=== PATIENT | male | born 1955 | race African-American/Black ===

== ENCOUNTER 2017-05-16 11:26 | Inpatient (IN) | payer MEDICAID ==
[~2017-05-16] VITALS: Ht 170.2 cm; Wt 69.4 kg
[2017-05-16] MEDS ORDERED: ACETAMINOPHEN 325MG TABLET PO STA (11:52)
[2017-05-16] MEDS ORDERED: SODIUM CHLORIDE 0.9% 1,000 ML IV ONE (11:52)
[2017-05-16 12:27] LABS: HEMATOCRIT. 36.9 % (42.0-52.0); HEMOGLOBIN. 12.4 g/dL (14.0-18.0); MEAN CORPUSCULAR HEMOGLOBIN 29.9 pg (28.0-32.0); MEAN CORPUSCULAR VOLUME 89.3 fL (80.0-94.0); MEAN PLATELET VOLUME 7.5 fl (7.4-10.4); PLATELET 255 x1000/uL (130-400); RED BLOOD CELL COUNT 4.13 mill/uL (4.7-6.1)
[2017-05-16 12:33] LABS: PROTHROMBIN TIME 10.7 sec (9.4-11.6)
[2017-05-16 12:39] LABS: CARBON DIOXIDE 27 mEq/L (21-32); CHLORIDE 99 mEq/L (98-107)
[2017-05-16 12:43] LABS: TROPONIN I < 0.02 ng/mL (0.00-0.04)
[2017-05-16] MEDS ORDERED: CEFTRIAXONE 2 G PREMIX 50 ML IV NR (12:45)
[2017-05-16] MEDS ORDERED: AZITHROMYCIN 500 MG in DEXT 5% WATER 250 ML IV NR (12:45)
[2017-05-16 13:50] LABS: PLATELET ESTIMATE NORMAL
[2017-05-16 13:55] LABS: CLARITY URINE CLEAR (CLEAR); COLOR URINE YELLOW (YELLOW); GLUCOSE URINE NEGATIVE (NEGATIVE); KETONES URINE NEGATIVE (NEGATIVE); OCCULT BLOOD URINE NEGATIVE (NEGATIVE); PROTEIN URINE NEGATIVE (NEGATIVE)
[2017-05-16 13:56] LABS: LEUKOCYTE ESTERASE URINE NEGATIVE (NEGATIVE); NITRITE URINE NEGATIVE (NEGATIVE); SPECIFIC GRAVITY URINE 1.012 (1.005-1.030)
[2017-05-16] MEDS ORDERED: IBUPROFEN 400MG TABLET PO ONE (16:45)
[2017-05-16] MEDS ORDERED: DOCUSATE SODIUM 100MG CAPSULE PO PRN (17:45)
[2017-05-16] MEDS ORDERED: ONDANSETRON HCL 4MG/2ML VIAL IV PRN (17:45)
[2017-05-16] MEDS ORDERED: MORPHINE SULFATE 4 MG/ML CPJ (NOT FOR IM USE) IV PRN (18:00)
[2017-05-16 18:48] LABS: *AMPHETAMINES SCREEN URINE NEGATIVE (NEGATIVE); *BARBITURATES SCREEN URINE NEGATIVE (NEGATIVE); *BENZODIAZEPINES SCREEN URINE NEGATIVE (NEGATIVE); *COCAINE SCREEN URINE NEGATIVE (NEGATIVE); CANNABINOID URINE SCREEN NEGATIVE (NEGATIVE); METHADONE URINE SCREEN NEGATIVE (NEGATIVE); OPIATES URINE SCREEN NEGATIVE (NEGATIVE); PHENCYCLIDINE URINE SCREEN NEGATIVE (NEGATIVE)
[2017-05-16] MEDS ORDERED: LISI40TA4 PO (19:05)
[2017-05-16] MEDS ORDERED: CARV12.545 PO (19:17)
[2017-05-16] MEDS ORDERED: DIGO250T4 PO (19:18)
[2017-05-16] MEDS ORDERED: MULT-1146 PO (19:19)
[2017-05-16] MEDS ORDERED: ASPI-1079 PO (19:19)
[2017-05-16] MEDS ORDERED: LORA0.5T2 PO (19:20)
[2017-05-16] MEDS ORDERED: INFLUENZA VIRUS VACCINE 0.5ML SYR IM ONE (19:45)
[2017-05-16] MEDS ORDERED: PNEUMOCOCCAL 23-VAL P-SAC VAC 0.5 ML IM ONE (19:45)
[2017-05-16 20:00] VITALS: BP 98/52
[2017-05-16] MEDS: ENOXAPARIN 40MG/0.4ML SYR SUBCUT SCH (20:58)
[2017-05-16 23:57] LABS: CREATINE KINASE 105 IU/L (39-308); CREATINE KINASE MB FRACTION < 0.5 ng/mL (0.5-3.6); TROPONIN I < 0.02 ng/mL (0.00-0.04)
[2017-05-17] VITALS: BP 97/59
[2017-05-17] MEDS: LORAZEPAM 2MG/ML CPJ IV PRN (00:48)
[2017-05-17 04:00] VITALS: BP 115/56
[2017-05-17] MEDS ORDERED: ASPIRIN 81MG TABLET PO SCH (07:00)
[2017-05-17 07:30] LABS: HEMATOCRIT. 34.1 % (42.0-52.0); HEMOGLOBIN. 11.2 g/dL (14.0-18.0); MEAN CORPUSCULAR HEMOGLOBIN 29.5 pg (28.0-32.0); MEAN CORPUSCULAR VOLUME 89.5 fL (80.0-94.0); MEAN PLATELET VOLUME 8.2 fl (7.4-10.4); PLATELET 232 x1000/uL (130-400); RED BLOOD CELL COUNT 3.81 mill/uL (4.7-6.1); RED CELL DISTRIBUTION WIDTH 13.8 % (11.6-14.6)
[2017-05-17 08:00] VITALS: BP 101/63
[2017-05-17] MEDS: THIAMINE HCL 100MG TABLET PO SCH (08:52)
[2017-05-17] MEDS: DIGOXIN 250MCG TABLET PO SCH (08:53)
[2017-05-17] MEDS: LORAZEPAM 0.5MG TABLET PO SCH ×3 (08:53→17:44)
[2017-05-17] MEDS: ASPIRIN 81MG EC TABLET PO SCH (08:53)
[2017-05-17] MEDS ORDERED: AZITHROMYCIN 500 MG in DEXT 5% WATER 250 ML IV SCH (09:00)
[2017-05-17] MEDS: LISINOPRIL 40MG TABLET PO SCH (09:00)
[2017-05-17] MEDS: CARVEDILOL 12.5MG TABLET PO SCH ×2 (09:00→21:00)
[2017-05-17] MEDS ORDERED: FUROSEMIDE 40MG/4ML VIAL IV SCH (09:00)
[2017-05-17 10:28] LABS: CARBON DIOXIDE 27 mEq/L (21-32); CHLORIDE 100 mEq/L (98-107); PHOSPHORUS 2.6 mg/dL (2.5-4.9)
[2017-05-17 11:05] LABS: CREATINE KINASE 103 IU/L (39-308); CREATINE KINASE MB FRACTION < 0.5 ng/mL (0.5-3.6); TROPONIN I < 0.02 ng/mL (0.00-0.04)
[2017-05-17 12:00] VITALS: BP 110/70
[2017-05-17] MEDS ORDERED: GUAIFENESIN 200MG/10ML SUGAR FREE UDC PO PRN (13:15)
[2017-05-17] MEDS ORDERED: CEFTRIAXONE 1 G PREMIX 50 ML IV SCH (14:00)
[2017-05-17] MEDS: POTASSIUM CHLORIDE 20MEQ TABLET SR PO SCH (14:13)
[2017-05-17] MEDS: CEFTRIAXONE 1 G PREMIX 50 ML IV SCH (14:13)
[2017-05-17] MEDS: ACETAMINOPHEN 325MG TABLET PO PRN (14:28)
[2017-05-17 16:00] VITALS: BP 110/55
[2017-05-17 20:00] VITALS: BP 109/67
[2017-05-17] MEDS: ENOXAPARIN 40MG/0.4ML SYR SUBCUT SCH (20:29)
[2017-05-18] VITALS (8 sets, daily range): BP systolic 93–111; BP diastolic 59–74
[2017-05-18] MEDS: IPRATROPIUM/ALBUTEROL 0.5-3(2.5)MG/3ML NEB INH PRN ×2 (00:41→04:38)
[2017-05-18] MEDS: HYDROCODONE/ACETAMINOPHEN 5/325MG TABLET PO PRN (00:43)
[2017-05-18] MEDS: FUROSEMIDE 40MG/4ML VIAL IV SCH (06:35)
[2017-05-18 07:27] LABS: BASOPHILS % 0.1 % (0.0-2.0); HEMATOCRIT. 33.2 % (42.0-52.0); LYMPHOCYTES % 10.4 % (20.0-50.0); MEAN CORPUSCULAR HEMOGLOBIN 29.6 pg (28.0-32.0); MEAN CORPUSCULAR VOLUME 89.6 fL (80.0-94.0); MEAN PLATELET VOLUME 7.9 fl (7.4-10.4); NEUTROPHILS % 79.5 % (40.0-76.0); PLATELET 241 x1000/uL (130-400); RED BLOOD CELL COUNT 3.71 mill/uL (4.7-6.1); RED CELL DISTRIBUTION WIDTH 14.1 % (11.6-14.6)
[2017-05-18] MEDS ORDERED: MORPHINE SULFATE 10 MG/ML CPJ IV PRN (07:57)
[2017-05-18 08:05] LABS: CARBON DIOXIDE 27 mEq/L (21-32); CHLORIDE 99 mEq/L (98-107); PHOSPHORUS 2.9 mg/dL (2.5-4.9)
[2017-05-18] MEDS: CEFTRIAXONE 1 G PREMIX 50 ML IV SCH (08:36)
[2017-05-18] MEDS: LISINOPRIL 40MG TABLET PO SCH (08:37)
[2017-05-18] MEDS: THIAMINE HCL 100MG TABLET PO SCH (08:37)
[2017-05-18] MEDS: POTASSIUM CHLORIDE 20MEQ TABLET SR PO SCH (08:37)
[2017-05-18] MEDS: CARVEDILOL 12.5MG TABLET PO SCH ×2 (08:37→09:00)
[2017-05-18] MEDS: AZITHROMYCIN 500 MG in DEXT 5% WATER 250 ML IV SCH (08:37)
[2017-05-18] MEDS: ASPIRIN 81MG EC TABLET PO SCH (08:38)
[2017-05-18] MEDS: DIGOXIN 250MCG TABLET PO SCH (08:38)
[2017-05-18] MEDS: LORAZEPAM 0.5MG TABLET PO SCH ×4 (08:38→18:45)
[2017-05-18 14:39] LABS: PLATELET ESTIMATE NORMAL
[2017-05-18] MEDS: ALBUTEROL (0.083%) 2.5MG/3ML NEB HHN SCH ×2 (17:57→20:06)
[2017-05-18] MEDS: CARVEDILOL 6.25 MG TABLET PO SCH (21:00)
[2017-05-18] MEDS: ENOXAPARIN 40MG/0.4ML SYR SUBCUT SCH (21:27)
[2017-05-19] VITALS: BP 105/59
[2017-05-19] MEDS: ALBUTEROL (0.083%) 2.5MG/3ML NEB HHN SCH ×6 (00:16→21:18)
[2017-05-19] MEDS: LORAZEPAM 2MG/ML CPJ IV PRN ×2 (01:14→20:52)
[2017-05-19 04:00] VITALS: BP 106/63
[2017-05-19] MEDS: FUROSEMIDE 40MG/4ML VIAL IV SCH (06:44)
[2017-05-19 07:41] VITALS: BP 112/64
[2017-05-19] MEDS: AZITHROMYCIN 500 MG in DEXT 5% WATER 250 ML IV SCH (08:15)
[2017-05-19] MEDS: CEFTRIAXONE 1 G PREMIX 50 ML IV SCH (08:16)
[2017-05-19] MEDS: ASPIRIN 81MG EC TABLET PO SCH (08:16)
[2017-05-19] MEDS: THIAMINE HCL 100MG TABLET PO SCH (08:16)
[2017-05-19] MEDS: LORAZEPAM 0.5MG TABLET PO SCH ×3 (08:16→16:51)
[2017-05-19] MEDS: DIGOXIN 250MCG TABLET PO SCH (08:17)
[2017-05-19] MEDS: POTASSIUM CHLORIDE 20MEQ TABLET SR PO SCH (08:17)
[2017-05-19] MEDS: LISINOPRIL 20MG TABLET PO SCH (08:18)
[2017-05-19] MEDS: CARVEDILOL 6.25 MG TABLET PO SCH ×2 (08:19→20:50)
[2017-05-19 08:45] LABS: BASOPHILS % 0.1 % (0.0-2.0); EOSINOPHILS % 3.9 % (0.0-5.0); HEMATOCRIT. 36.3 % (42.0-52.0); HEMOGLOBIN. 12.2 g/dL (14.0-18.0); LYMPHOCYTES % 15.8 % (20.0-50.0); MEAN CORPUSCULAR HEMOGLOBIN 30.3 pg (28.0-32.0); MEAN CORPUSCULAR VOLUME 90.1 fL (80.0-94.0); MEAN PLATELET VOLUME 7.9 fl (7.4-10.4); MONOCYTES % 11.4 % (2.0-8.0); NEUTROPHILS % 68.8 % (40.0-76.0); PLATELET 290 x1000/uL (130-400); RED BLOOD CELL COUNT 4.02 mill/uL (4.7-6.1); RED CELL DISTRIBUTION WIDTH 13.7 % (11.6-14.6)
[2017-05-19 11:50] VITALS: BP 108/74
[2017-05-19 16:00] VITALS: BP 112/78
[2017-05-19 20:00] VITALS: BP 120/65
[2017-05-19] MEDS: ENOXAPARIN 40MG/0.4ML SYR SUBCUT SCH (20:51)
[2017-05-20] VITALS (7 sets, daily range): BP systolic 99–132; BP diastolic 54–89
[2017-05-20] MEDS: ALBUTEROL (0.083%) 2.5MG/3ML NEB HHN SCH ×6 (00:30→20:59)
[2017-05-20] MEDS: FUROSEMIDE 40MG/4ML VIAL IV SCH (06:32)
[2017-05-20 07:27] LABS: HEMATOCRIT. 34.6 % (42.0-52.0); HEMOGLOBIN. 11.7 g/dL (14.0-18.0); MEAN CORPUSCULAR HEMOGLOBIN 30.2 pg (28.0-32.0); MEAN CORPUSCULAR VOLUME 89.3 fL (80.0-94.0); MEAN PLATELET VOLUME 7.6 fl (7.4-10.4); PLATELET 297 x1000/uL (130-400); RED BLOOD CELL COUNT 3.88 mill/uL (4.7-6.1); RED CELL DISTRIBUTION WIDTH 13.6 % (11.6-14.6)
[2017-05-20] MEDS: AZITHROMYCIN 500 MG in DEXT 5% WATER 250 ML IV SCH (08:23)
[2017-05-20] MEDS: CEFTRIAXONE 1 G PREMIX 50 ML IV SCH (08:23)
[2017-05-20] MEDS: LORAZEPAM 0.5MG TABLET PO SCH ×3 (08:24→16:19)
[2017-05-20] MEDS: DIGOXIN 250MCG TABLET PO SCH (08:24)
[2017-05-20] MEDS: THIAMINE HCL 100MG TABLET PO SCH (08:24)
[2017-05-20] MEDS: LISINOPRIL 20MG TABLET PO SCH (08:24)
[2017-05-20] MEDS: POTASSIUM CHLORIDE 20MEQ TABLET SR PO SCH (08:24)
[2017-05-20] MEDS: ASPIRIN 81MG EC TABLET PO SCH (08:25)
[2017-05-20] MEDS: CARVEDILOL 6.25 MG TABLET PO SCH ×2 (08:25→21:42)
[2017-05-20 10:33] LABS: PLATELET ESTIMATE NORMAL
[2017-05-20] MEDS: ENOXAPARIN 40MG/0.4ML SYR SUBCUT SCH (21:42)
[2017-05-21] VITALS (9 sets, daily range): BP systolic 92–122; BP diastolic 47–71
[2017-05-21] MEDS: ALBUTEROL (0.083%) 2.5MG/3ML NEB HHN SCH ×7 (00:30→23:57)
[2017-05-21 06:44] LABS: HEMATOCRIT. 35.6 % (42.0-52.0); MEAN CORPUSCULAR HEMOGLOBIN 29.9 pg (28.0-32.0); MEAN CORPUSCULAR VOLUME 88.8 fL (80.0-94.0); MEAN PLATELET VOLUME 7.2 fl (7.4-10.4); PLATELET 307 x1000/uL (130-400); RED BLOOD CELL COUNT 4.01 mill/uL (4.7-6.1); RED CELL DISTRIBUTION WIDTH 13.8 % (11.6-14.6)
[2017-05-21] MEDS: FUROSEMIDE 40MG/4ML VIAL IV SCH (07:00)
[2017-05-21 08:22] LABS: CARBON DIOXIDE 26 mEq/L (21-32); CHLORIDE 94 mEq/L (98-107)
[2017-05-21] MEDS: CEFTRIAXONE 1 G PREMIX 50 ML IV SCH (10:07)
[2017-05-21] MEDS: AZITHROMYCIN 500 MG in DEXT 5% WATER 250 ML IV SCH (10:07)
[2017-05-21] MEDS: LISINOPRIL 20MG TABLET PO SCH (10:11)
[2017-05-21] MEDS: DIGOXIN 250MCG TABLET PO SCH (10:12)
[2017-05-21] MEDS: ASPIRIN 81MG EC TABLET PO SCH (10:12)
[2017-05-21] MEDS: POTASSIUM CHLORIDE 20MEQ TABLET SR PO SCH (10:12)
[2017-05-21] MEDS: LORAZEPAM 0.5MG TABLET PO SCH ×3 (10:13→17:30)
[2017-05-21] MEDS: CARVEDILOL 6.25 MG TABLET PO SCH ×2 (10:13→21:00)
[2017-05-21] MEDS: THIAMINE HCL 100MG TABLET PO SCH (10:18)
[2017-05-21] MEDS: HYDROCODONE/ACETAMINOPHEN 5/325MG TABLET PO PRN (11:44)
[2017-05-21] MEDS ORDERED: HYDROCODONE/ACETAMINOPHEN 5/325MG TABLET PO PRN (13:45)
[2017-05-21 17:21] LABS: PLATELET ESTIMATE NORMAL
[2017-05-21] MEDS: ENOXAPARIN 40MG/0.4ML SYR SUBCUT SCH (21:36)
[2017-05-21] MEDS: ACETAMINOPHEN 325MG TABLET PO PRN (21:44)
[2017-05-22] VITALS: BP 97/52
[2017-05-22 04:00] VITALS: BP 95/55
[2017-05-22] MEDS: ALBUTEROL (0.083%) 2.5MG/3ML NEB HHN SCH ×2 (04:26→08:30)
[2017-05-22] MEDS: FUROSEMIDE 40MG/4ML VIAL IV SCH (07:02)
[2017-05-22 08:00] VITALS: BP 124/74
[2017-05-22] MEDS: ASPIRIN 81MG EC TABLET PO SCH (09:00)
[2017-05-22] MEDS: CEFTRIAXONE 1 G PREMIX 50 ML IV SCH (09:00)
[2017-05-22] MEDS: THIAMINE HCL 100MG TABLET PO SCH (09:00)
[2017-05-22] MEDS: CARVEDILOL 6.25 MG TABLET PO SCH (09:00)
[2017-05-22] MEDS: LISINOPRIL 20MG TABLET PO SCH (09:00)
[2017-05-22] MEDS: DIGOXIN 250MCG TABLET PO SCH (09:00)
[2017-05-22] MEDS: POTASSIUM CHLORIDE 20MEQ TABLET SR PO SCH (09:01)
[2017-05-22] MEDS: LORAZEPAM 0.5MG TABLET PO SCH (09:01)
[2017-05-22 11:34] VITALS: BP 122/74
[2017-05-22 12:00] VITALS: BP 106/68
== END 2017-05-22 12:20 | disposition home or self-care (01) | DRG 720 ==
LOC: ER 11:40 → 8WST 12:53 → EDBD 12:53 → EDBEDREQ 12:55 → EDBEDREQTM 12:55 → ENRESERV 16:03 → SUPCPDRO 17:37 → 8WST 05-20 11:36
PROVIDERS: ADMIT Internal Medicine Nephrology; ATTEND Internal Medicine Nephrology
DX: A41.9 Sepsis, unspecified organism (principal); J96.00 Acute respiratory failure, unspecified whether with hypoxia or hypercapnia; I50.33 Acute on chronic diastolic (congestive) heart failure; J18.9 Pneumonia, unspecified organism; I95.9 Hypotension, unspecified; I11.0 Hypertensive heart disease with heart failure; E87.1 Hypo-osmolality and hyponatremia; E87.6 Hypokalemia; D64.9 Anemia, unspecified; F17.210 Nicotine dependence, cigarettes, uncomplicated; I25.10 Atherosclerotic heart disease of native coronary artery without angina pectoris; J44.9 Chronic obstructive pulmonary disease, unspecified; Z60.2 Problems related to living alone; L91.0 Hypertrophic scar; Z96.659 Presence of unspecified artificial knee joint; Z91.041 Radiographic dye allergy status; Z79.899 Other long term (current) drug therapy; Z79.82 Long term (current) use of aspirin; Z71.6 Tobacco abuse counseling; I25.2 Old myocardial infarction
CPT/HCPCS: 36415; 71010; 71020; 80048; 80053; 80305; 81003; 82550; 82553; 83605; 83690; 83735; 83880; 84100; 84484; 85025; 85610; 86480; 87040; 87070; 87086; 87804; 90686; 90732; 93005; 94640; 96361; 96365; 96368; 99291; J0456; J0696; J1650; J1940; J2060; J7030; J7050; J7060; J7611

== ENCOUNTER 2017-07-06 11:36 | Emergency (ER) | payer MEDICAID ==
[~2017-07-06 11:36] MED LIST: ASPI-1079 PO; CARV12.545 PO; DIGO250T4 PO; LISI40TA4 PO; LORA0.5T2 PO; MULT-1146 PO
== END 2017-07-06 12:56 | disposition left against medical advice (07) ==
LOC: ER 11:36
DX: R51 Headache (principal); Z53.21 Procedure and treatment not carried out due to patient leaving prior to being seen by health care provider